=== PATIENT | female | born 1990 | race Caucasian/White ===

== ENCOUNTER 2017-01-25 14:05 | Emergency (ER) | payer OTHER ==
[2017-01-25 15:43] LABS: % IMMATURE GRANULYOCYTES 0.2 % (0.0-1.1); ABSOLUTE IMMATURE GRANULOCYTES 0.02 10^3/uL (0.00-0.10); ADD DIFF? NO; ADD MORPH? NO; ADD SCAN? NO; ATYPICAL LYMPHOCYTE FLAG 0 (0-99); FRAGMENT RBC FLAG 0 (0-99); HEMATOCRIT 38.7 % (38.0-47.0); HEMOGLOBIN 13.2 g/dL (12.6-16.3); LEFT SHIFT FLG 0 (0-99); LIPEMIA HEMOLYSIS FLAG 90 (0-99); MEAN CELL HEMOGLOBIN 31.8 pg (27.9-34.1); MEAN CELL HEMOGLOBIN CONCENTR. 34.1 g/dL (32.4-36.7); MEAN CELL VOLUME 93.3 fL (81.5-99.8); MEAN PLATELET VOLUME 8.6 fL (8.7-11.7); PLATELET CLUMPS FLAG 0 (0-99); PLATELET COUNT 256 10^3/uL (150-400); RED BLOOD CELL COUNT 4.15 10^6/uL (4.18-5.33); RED CELL DISTRIBUTION WIDTH 11.7 % (11.5-15.2)
[2017-01-25 15:56] LABS: COLOR PALE YELLOW; LEUKOCYTE ESTERASE,URINE NEGATIVE (NEGATIVE); NITRITE,URINE NEGATIVE (NEGATIVE)
[2017-01-25 16:00] LABS: BACTERIA TRACE /hpf (NONE SEEN)
[2017-01-25] MEDS ORDERED: fentaNYL 100 MCG/2 ML INJ IVP ONE (16:00)
[2017-01-25 16:02] LABS: ANION GAP 9 mEq/L (8-16); CALCIUM 9.5 mg/dL (8.5-10.4); CARBON DIOXIDE 24 mEq/l (22-31); CHLORIDE 102 mEq/L (97-110); CREATININE 0.7 mg/dL (0.6-1.0); GLOMERULAR FILTRATION RATE > 60; GLUCOSE 87 mg/dL (70-100); POTASSIUM 3.8 mEq/L (3.5-5.2); SODIUM 135 mEq/L (134-144)
--- NOTE | 2017-01-25 16:07 | EDPHY ---
H & P Smoking Status: Former smoker Time Seen by Provider: 01/25/17 15:09 HPI/ROS: CHIEF COMPLAINT: Abdominal pain HISTORY OF PRESENT ILLNESS: 26-year-old female presents to the emergency department with right-sided abdominal pain that began nearly 1 week ago. Patient started having pain in her right mid abdomen 1 week ago and it has localized more in her right lower quadrant. Her appendix has been removed. The patient has a history of frequent ovarian cyst requiring surgical removal. Last menstrual period was 2 weeks ago. She states that the pain that she is having in her right lower quadrant feels very similar to her ovarian cysts, however the pain that she was having in her right mid abdomen feels very different. No flank pain. No urinary symptoms. No fevers or chills. No reported trauma. No chest pain or difficulty breathing. No urinary symptoms. REVIEW OF SYSTEMS: Constitutional: No fever, no chills. Eyes: No double or blurry vision. ENT: No sore throat. Respiratory: No cough, no shortness of breath. Cardiac: No chest pain. Gastrointestinal: As above. No vomiting or diarrhea Genitourinary: No dysuria. Musculoskeletal: No neck or back pain. Skin: No rashes. Neurological: No headache. (Campbell,Kierra M) Past Medical/Surgical History: Ovarian cysts x3 requiring surgical removal, anxiety, depression (Campbell,Kierra M) Social History: Single and lives in [place] (Campbell,Kierra M) Physical Exam: General Appearance: Alert, no distress. Afebrile. No apparent distress. Eyes: Pupils equal and round. Extraocular motions are all intact. ENT: Mouth: Mucous membranes moist. Respiratory: No wheezing, rhonchi, or rales, lungs are clear to auscultation. Cardiovascular: Regular rate and rhythm. Gastrointestinal: Abdomen is soft. She has tenderness with palpation in the right lower quadrant. There is no rebound, guarding or masses noted. No CVA tenderness bilaterally. No hepatosplenomegaly. Neurological: Alert and oriented x 3, cranial nerves II through XII grossly intact Skin: Warm and dry, no rashes. Musculoskeletal: Nontender to palpate along the cervical, thoracic or lumbar spine. Neck is supple. Extremities: Full range of motion and no peripheral edema. Psychiatric: Patient is oriented X 3, there is no agitation. (Rosin,Kierra M) Constitutional: Initial Vital Signs Temperature (C) 37.1 C 01/25/17 14:19 Heart Rate 69 01/25/17 14:19 Respiratory Rate 18 01/25/17 14:19 Blood Pressure 135/93 H 01/25/17 14:19 O2 Sat (%) 95 01/25/17 14:19 O2 Delivery Mode Room Air Allergies/Adverse Reactions: No Known Allergies Allergy (Verified 06/21/16 17:15) Home Medications: Medication Instructions Recorded GABAPENTIN 400 mg PO 06/21/16 QUEtiapine FUMARATE [Seroquel 100 200 mg PO BID 06/21/16 mg (*)] lamoTRIgine [LamICTAL 100 MG (*)] 100 mg PO 06/21/16 Medical Decision Making - Diagnostics Imaging: Discussed imaging studies w/ floor space allocator Radiologist ED Course/Re-evaluation: 26-year-old female presents to the emergency department with abdominal pain. Pelvic ultrasound was unremarkable. Laboratory studies are unremarkable. Patient has had a previous appendectomy. Patient states she is feeling better. I offered CT imaging of the abdomen and pelvis the patient declined. I encouraged her return to the emergency department she develops fever, worsening abdominal pain, or if she felt worse in any way. (Kierra Hightower) Differential Diagnosis: Including but not limited to constipation, ovarian cyst, it will bowel syndrome , ovarian torsion, urinary tract infection, pyelonephritis (Kierra Hightower) Other Provider: The patient was evaluated and managed by the physician chiropractor assistant. I have reviewed this chart and I agree with the findings and plan of care as documented , as indicated by my signature. I am the secondary supervising physician. ( Lawanda Arellano) - Data Points Laboratory Results: Laboratory Results 01/25/17 15:30 01/25/17 15:30 Medications Given: Discontinued Medications Fentanyl (Sublimaze) 50 mcg IVP EDNOW ONE Stop: 01/25/17 16:01 Last Admin: 01/25/17 16:08 Dose: 50 mcg Departure - Departure Disposition: Home, Routine, Self-Care Clinical Impression: Abdominal pain Qualifiers: Abdominal location: right lower quadrant Qualified Code(s): R10.31 - Right lower quadrant pain Condition: Good Instructions: Abdominal Pain (ED) Additional Instructions: Abdominal Pain: Return to the Emergency Department immediately for increasing pain, fever, vomiting, or if not completely better in 8-12 hours. Ibuprofen 600mg every 8 hours for pain as directed. Referrals: Anusha Moeller MD [Primary Care Provider] - As per Instructions Terrie Medina MD [Medical Doctor] - As per Instructions (OBGYN on-call)
[2017-01-25 18:17] VITALS: RESP 20; O2SAT 94
[2017-01-25 18:30] VITALS: BP 145/77; PULSE 69; TEMP 98.1
== END 2017-01-25 18:32 | disposition home or self-care (01) ==
DX: R10.31 Right lower quadrant pain (principal); Z87.891 Personal history of nicotine dependence
CPT/HCPCS: 96374; J3010